=== PATIENT | female | born 1995 | race African-American/Black ===

== ENCOUNTER 2020-08-18 08:48 | Inpatient (IN) | payer OTHER ==
[2020-08-18] MEDS ORDERED: PROMETHAZINE HCL 25 MG/1 ML VIAL IVPUSH ONE (10:37)
[2020-08-18] MEDS ORDERED: SODIUM PHOSPHATE/NA BIPHOS 133 ML ENEMA RC ONE (10:39)
[2020-08-18] MEDS ORDERED: DEXTROSE 5%-LACTATED RINGERS 1,000 ML IV SCH (10:45)
[2020-08-18] MEDS ORDERED: DINOPROSTONE 10 MG VAGINAL SUPPOSITORY VG ONE (10:45)
[2020-08-18] MEDS ORDERED: BUTORPHANOL TARTRATE 1 MG/ML VIAL IVPB ONE (11:00)
[2020-08-18 11:17] LABS: BASO % 0.7 % (0-2.0); HEMATOCRIT 37.9 % (32.4-45.2); HEMOGLOBIN 12.9 GM/dL (10.7-15.3); LYMPH % 15.9 % (8-40); MCH 30.9 pg (25.7-33.7); MCHC 34.1 g/dl (32.0-36.0); MEAN CELL VOLUME 90.5 fl (80-96); MEAN PLT VOLUME 9.3 fl (7.5-11.1); NEUT % 76.4 % (42.8-82.8); PLATELET COUNT 147 K/MM3 (134-434); RBC 4.19 M/mm3 (3.60-5.2); RDW 13.9 % (11.6-15.6); WHITE BLOOD COUNT 10.8 K/mm3 (4.0-10.0)
[2020-08-18 11:41] LABS: INR 0.91 (0.83-1.09); PROTHROMBIN TIME (PATIENT) 11.2 SEC (9.7-13.0)
[2020-08-18 11:43] LABS: BLOOD UREA NITROGEN 4.6 mg/dL (7-18); CALCIUM 8.7 mg/dL (8.5-10.1)
[2020-08-18 11:44] LABS: ACTIVATED PTT 26.3 SECONDS (25.2-36.5)
[2020-08-18 11:50] VITALS: BMI 24.3
[2020-08-18 11:52] LABS: CREATININE 0.5 mg/dL (0.55-1.3)
[2020-08-18] MEDS ORDERED: PROMETHAZINE HCL 25 MG/1 ML VIAL ONE (23:12)
[2020-08-18] MEDS ORDERED: BUTORPHANOL TARTRATE 2 MG/ML VIAL ONE (23:12)
[2020-08-18] MEDS ORDERED: OXYTOCIN 30 UNITS in 0.9% NS 30 UNIT/500 ML INFUS.BAG IVPB SCH (23:30)
[2020-08-19] MEDS ORDERED: LIDOCAINE HCL 1% PRESERVATIVE FREE - 30ML VIAL ONE (00:10)
[2020-08-19] MEDS ORDERED: OXYTOCIN 20 UNITS in 0.9% NS 20 UNIT/1,000 ML INFUS.BAG IV ONE (00:10)
[2020-08-19] MEDS ORDERED: WITCH HAZEL 50% (TUCKS) 40 PAD/JAR PAD TP PRN (00:48)
[2020-08-19] MEDS ORDERED: METHYLERGONOVINE MALEATE 0.2 MG/1 ML AMP IM PRN (00:48)
[2020-08-19] MEDS ORDERED: BISACODYL 10 MG SUPP.RECT RC PRN (00:48)
[2020-08-19] MEDS ORDERED: BENZOCAINE 28 GM HEMORRHOIDAL OINTMENT TP PRN (00:48)
[2020-08-19] MEDS ORDERED: BENZOCAINE 20% 57 GM BOTTLE TP PRN (00:48)
[2020-08-19] MEDS ORDERED: OXYTOCIN 20 UNITS in 0.9% NS 20 UNIT/1,000 ML INFUS.BAG IV SCH (01:00)
[2020-08-19 02:04] LABS: CORD BASE EXCESS -4.3 mmol/L (0-2); CORD HCO3 23.5 mmHg (20-29); CORD PCO2 53.3 mmHg (30-78); CORD pH 7.263 (7.14-7.44)
[2020-08-19] MEDS: PRENATAL VITAMINS W/ FOLIC ACID TABLET (FP) PO SCH (09:45)
[2020-08-19] MEDS: FERROUS SO4 325 MG TABLET (FP) PO SCH ×2 (09:45→17:57)
[2020-08-19] MEDS: IBUPROFEN 600 MG TABLET (FP) PO PRN (14:50)
[2020-08-19] MEDS: ACETAMINOPHEN 325 MG TABLET (FP) PO PRN (14:51)
[2020-08-20 08:15] LABS: BASO % 0.3 % (0-2.0); EOS % 1.7 % (0-4.5); HEMOGLOBIN 11.5 GM/dL (10.7-15.3); LYMPH % 20.5 % (8-40); MCH 31.1 pg (25.7-33.7); MEAN CELL VOLUME 91.5 fl (80-96); MEAN PLT VOLUME 9.7 fl (7.5-11.1); NEUT % 70.5 % (42.8-82.8); PLATELET COUNT 169 K/MM3 (134-434); RBC 3.71 M/mm3 (3.60-5.2); RDW 13.9 % (11.6-15.6); WHITE BLOOD COUNT 12.2 K/mm3 (4.0-10.0)
[2020-08-20] MEDS: PRENATAL VITAMINS W/ FOLIC ACID TABLET (FP) PO SCH (09:47)
[2020-08-20] MEDS: ACETAMINOPHEN 325 MG TABLET (FP) PO PRN (09:47)
[2020-08-20] MEDS: FERROUS SO4 325 MG TABLET (FP) PO SCH (09:47)
[2020-08-20] MEDS: IBUPROFEN 600 MG TABLET (FP) PO PRN (09:47)
[2020-08-20 09:57] VITALS: BP 122/88; PULSE 80; TEMP 98.7
[2020-08-20] MEDS ORDERED: SENNOSIDES/DOCUSATE COMBO (SENNA PLUS) TABLET (UD) PO PRN (22:00)
== END 2020-08-20 11:15 | disposition home or self-care (01) | DRG 560 ==
LOC: JDEL 08:48 → JLDR 10:35 → J3W 08-19 02:44
PROVIDERS: ADMIT Obstetrics & Gynecology; ATTEND Obstetrics & Gynecology
PROC: 3E0P7VZ Introduction of Hormone into Female Reproductive, Via Natural or Artificial Opening (ICD-10-PCS; principal; 2020-08-18)
PROC: 10907ZC Drainage of Amniotic Fluid, Therapeutic from Products of Conception, Via Natural or Artificial Opening (ICD-10-PCS; 2020-08-18)
PROC: 10E0XZZ Delivery of Products of Conception, External Approach (ICD-10-PCS; 2020-08-19)
DX: O41.03X0 Oligohydramnios, third trimester, not applicable or unspecified (principal); O69.89X0 Labor and delivery complicated by other cord complications, not applicable or unspecified; O77.0 Labor and delivery complicated by meconium in amniotic fluid; Z3A.38 38 weeks gestation of pregnancy; Z37.0 Single live birth
CPT/HCPCS: 36415; 36600; 59025; 59409; 76815-TC; 76819-TC; 80048; 81003; 82803; 83986-QW; 85025; 85610; 85730; 86780; 86850; 86900; 86901; C9803; U0003; U0005